=== PATIENT | female | born 1935 | race Caucasian/White ===

== ENCOUNTER 2016-02-26 06:42 | Day surgery (SDC) | payer BC ==
[2016-02-23 14:46] VITALS: BMI 32.9
--- NOTE | 2016-02-25 16:40 | HP ---
- Patient Scheduled date of Surgery: 02/26/16 Scheduled Surgical Procedure: Phacoemulsification and cataract extraction with PCIOL Affected Eye: Left Chief Complaint (Indication for surgery): Decreased vision affecting ADLs - Ocular History Other Eye History: Other (frd, HSV stromal keratitis OS, allergic conjunctivitis ) Eye Medications: vigamox, pataday - Medical History Current Medications: Ambulatory Orders Rosuvastatin Calcium [Crestor] 20 mg PO HS 01/13/13 Cholecalciferol (Vitamin D3) [Vitamin D] 1 tab PO DAILY 04/25/13 FA/Mv,Ca,Iron,Min/Lycopene/Lut [Centrum Tablet] 1 tab PO DAILY 04/25/13 [place]-3 Fatty Acids [Fish Oil] 300 mg PO DAILY 02/23/16 Allergies/Adverse Reactions: Allergies Allergy/AdvReac Type Severity Reaction Status Date / Time No Known Allergies Allergy Verified 01/13/13 16:33 Ocular Examination - Best Corrected Visual Acuity Distance: Right eye: 20/25 Distance: Left eye: 20/40 - External/Slit Lamp Examination Abnormalities: shallow AC ou - Intraocular Pressure Intraocular Pressure - Right eye: 16 Intraocular Pressure-Left eye: 16 - Lens Lens: 3+ ns 1+ cortical - Vitreous/Retina Vitreous/Retina: C:D 0.15 m/v/p wnl - Special Examination M - Right eye: +3.75-0.50 x 90 M - Left eye: +2.50-0.75 x 080 K - Right eye: 43/43.25 x 160 K - Left eye: 43.50/43.50 AL - Right eye: 22.31 AL - Left eye: 22.46 IOL bag: +24.5 d hoya 251 IOL sulcus: +24.0d hoya 231 IOL AC: +20.0d MTA 4uo - Impression Impression: Cataract Left Eye - Plan Plan: Phacoemulsification and cataract extraction - IOL Left eye Post-hospital care will be provided in office on: 02/27/16
[~2016-02-26 06:42] MED LIST: ACETAMINOPHEN 325 MG TABLET (FP) PO PRN
[2016-02-26] MEDS ORDERED: CIPROFLOXACIN HCL 0.3% OPHTH 2.5ML BOTTLE OP SCH (06:45)
[2016-02-26] MEDS ORDERED: PHENYLEPHRINE 2.5% OPHTH SOLN 15 ML BOTTLE OP SCH (06:45)
[2016-02-26] MEDS ORDERED: DICLOFENAC SODIUM 0.1% OPHTHALMIC 2.5ML BOTTLE OP SCH (06:45)
[2016-02-26] MEDS ORDERED: TROPICAMIDE 1% OPHTH SOLN 15 ML BOTTLE OP SCH (06:45)
[2016-02-26] MEDS ORDERED: EPINEPHrine/PF 1 MG/1 ML (1:1,000) AMPULE ONE (07:20)
[2016-02-26] MEDS ORDERED: TOBRAMYCIN/DEXAMETHASONE OPHTH. OINTMENT 1 TUBE ONE (07:20)
[2016-02-26] MEDS ORDERED: LIDOCAINE HCL/PF 1% SDV 5ML VIAL ONE (07:20)
--- NOTE | 2016-02-26 07:20 | HP ---
History & Physical Update - History History: No Change - Physical Physical: No Change - Assessment Assessment: No Change - Plan Plan: No Change
[2016-02-26] MEDS ORDERED: BSS (NA/CA/MG/K) BALANCED SALT SOLUTION OPHTH SOLN 15 ML BOTTLE ONE (07:21)
[2016-02-26] MEDS ORDERED: LIDOCAINE HCL 2% JELLY (5 ML/TUBE) ONE (07:21)
[2016-02-26] MEDS ORDERED: PHENYLEPHRINE 2.5% OPHTH SOLN 15 ML BOTTLE ONE (07:26)
[2016-02-26] MEDS ORDERED: DICLOFENAC SODIUM 0.1% OPHTHALMIC 2.5ML BOTTLE ONE (07:26)
[2016-02-26] MEDS ORDERED: MOXIFLOXACIN HCL 0.5% OPHTHALMIC 3 ML BOTTLE ONE (07:26)
[2016-02-26] MEDS ORDERED: TROPICAMIDE 1% OPHTH SOLN 15 ML BOTTLE ONE (07:26)
[2016-02-26 07:34] VITALS: TEMP 97.7
[2016-02-26] MEDS ORDERED: LIDOCAINE HCL 2% JELLY (5 ML/TUBE) TP ONE (08:48)
[2016-02-26] MEDS ORDERED: MIDAZOLAM HCL 2 MG/2 ML SINGLE DOSE VIAL ONE (08:53)
[2016-02-26] MEDS ORDERED: POVIDONE-IODINE 5% OPHTHALMIC PREP 30 ML SOLUTION OS ONE (08:57)
[2016-02-26] MEDS ORDERED: LIDOCAINE HCL 1% PRESERVATIVE FREE - 30ML VIAL IO ONE (09:05)
[2016-02-26] MEDS ORDERED: EPINEPHrine/PF 1 MG/1 ML (1:1,000) AMPULE SQ ONE (09:05)
[2016-02-26] MEDS ORDERED: BSS (NA/CA/MG/K) BALANCED SALT SOLUTION OPHTH SOLN 15 ML BOTTLE OS ONE (09:05)
[2016-02-26] MEDS ORDERED: CHONDROITIN SU A/HYALUR SOD 1 KIT IO ONE (09:05)
[2016-02-26] MEDS ORDERED: TOBRAMYCIN/DEXAMETHASONE OPHTH. OINTMENT 1 TUBE TP ONE (09:26)
--- NOTE | 2016-02-26 09:37 | OP ---
Ophthalmology Operative Note Pre-Operative Diagnosis: Cataract Affected Eye: Left Operation: Phacoemulsification and cataract extraction with PCIOL Findings: cataract Post-Operative Diagnosis: Same as Pre-op Solar Applications Development Engineer: None Anesthesiologist: Yadira Guaman MD Anesthesia: Topical Specimens Removed: none Drains & Tubes with Location: <1 cc Operative Report Dictated: Yes
[2016-02-26 11:13] VITALS: BP 144/76; PULSE 79
--- NOTE | 2016-02-26 11:22 | OP ---
DATE OF OPERATION: February 26, 2016 PREOPERATIVE DIAGNOSIS: Cataract, left eye. POSTOPERATIVE DIAGNOSIS: Cataract, left eye. PROCEDURE: Phacoemulsification and cataract extraction with insertion of posterior chamber intraocular lens, left eye. DESCRIPTION OF PROCEDURE: The patient received viscous lidocaine gel in the holding area and then was brought to the operating room and gently sedated. The patient was then prepped and draped in the usual sterile fashion so as to expose only the left eye. Ophthalmic Betadine was instilled into the inferior fornix and the lashes were taped out of the surgical field. An eyelid speculum was placed into the left eye. A paracentesis was made in inferior clear cornea at the limbus. Non-preserved 0.5 mL of 1% lidocaine was injected into the anterior chamber. Viscoelastic material was instilled into the anterior chamber via the paracentesis. A 2.4 mm keratome was then used to create the main incision in temporal clear cornea at the limbus. A continuous curvilinear capsulorhexis was performed using a cystotome and Utrata forceps. Hydrodissection of the lens cortex was performed using BSS on a cannula until the nucleus was noted to be freely rotating. The phacoemulsification tip was then inserted via the main wound and used to sculpt 2 perpendicular grooves into the lens nucleus. The nucleus was cracked into 4 quadrants using the 2 instruments. Each quadrant was lifted out of the capsule into the iris plane and individually phacoemulsified. The remaining cortical material was then aspirated using the irrigation and aspiration port. The capsular bag was inflated using Provisc and a preloaded Hoya lens model 251, power +24.5 diopter was injected into the anterior chamber and centered using a Sinskey hook. The residual viscoelastic was removed from the anterior chamber using irrigation and aspiration. The wound edges were hydrated using BSS. The wound was tested for leakage, it was found to be water tight. Therefore TobraDex ointment was placed in the eye and the speculum was removed from the eye. Sterile dressing and shield were placed over the eye and the patient was transferred to the recovery room in stable condition, told to follow up in 1 day. LJ CASTILLO M.D. 1 [id number]
== END 2016-02-26 10:40 | disposition home or self-care (01) ==
LOC: JASU-SURG 06:42
PROVIDERS: ATTEND Ophthalmology
PROC: 08RK3JZ Replacement of Left Lens with Synthetic Substitute, Percutaneous Approach (ICD-10-PCS; principal; 2016-02-26 08:30)
DX: H26.9 Unspecified cataract (principal)

== ENCOUNTER 2016-09-30 06:22 | Day surgery (SDC) | payer BC ==
[2016-09-29 14:02] VITALS: BMI 31.0
--- NOTE | 2016-09-29 17:34 | HP ---
History & Physical Update - History History: No Change - Physical Physical: No Change - Assessment Assessment: No Change - Plan Plan: No Change
--- NOTE | 2016-09-29 17:34 | HP ---
- Patient Scheduled date of Surgery: 09/30/16 Scheduled Surgical Procedure: Phacoemulsification and cataract extraction with PCIOL Affected Eye: Right Chief Complaint (Indication for surgery): Decreased vision affecting ADLs - Ocular History Other Eye History: Other (macular drusen, hsv stromal keratitis OS, allergic conjunctivitis) Eye Medications: vigamox tid Od, pataday qd ou Previous Eye Surgery: s/p ce/pciol OS topical +24.5 d hoya 251 - Medical History Illnesses: Hypercholesterolemia Current Medications: Ambulatory Orders Rosuvastatin Calcium [Crestor] 20 mg PO HS 01/13/13 Cholecalciferol (Vitamin D3) [Vitamin D] 1 tab PO DAILY 04/25/13 FA/Mv,Ca,Iron,Min/Lycopene/Lut [Centrum Tablet] 1 tab PO DAILY 04/25/13 [place]-3 Fatty Acids [Fish Oil] 300 mg PO DAILY 02/23/16 Allergies/Adverse Reactions: Allergies Allergy/AdvReac Type Severity Reaction Status Date / Time No Known Allergies Allergy Verified 01/13/13 16:33 Ocular Examination - Best Corrected Visual Acuity Distance: Right eye: 20/50 glare Distance: Left eye: 20/25 - External/Slit Lamp Examination Abnormalities: decreased tbut - Intraocular Pressure Intraocular Pressure - Right eye: 14 Intraocular Pressure-Left eye: 13 - Lens Lens: 3+ ns 1+ cortical - Vitreous/Retina Vitreous/Retina: c:d 0.15 gliosis, m/v/p wnl - Special Examination M - Right eye: +3.75 -0.50 x 90 M - Left eye: plano K - Right eye: 43/43.50 x 090 K - Left eye: 43/43/25 x 165 AL - Right eye: 22.31 AL - Left eye: 22.4 IOL bag: +25.0 d hoya 251 IOL sulcus: +24.0 d hoya 231 IOL AC: +20.5 d MTA 4uo - Impression Impression: Cataract Right Eye - Plan Plan: Phacoemulsification and cataract extraction - IOL Right eye Post-hospital care will be provided in office on: 10/01/16
[~2016-09-30 06:22] MED LIST changes: +LIDOCAINE HCL 2% JELLY (5 ML/TUBE) TP ONE; +TOBRAMYCIN/DEXAMETHASONE OPHTH. OINTMENT 1 TUBE TP ONE
[2016-09-30] MEDS ORDERED: CIPROFLOXACIN HCL 0.3% OPHTH 2.5ML BOTTLE OP SCH (07:00)
[2016-09-30] MEDS ORDERED: PHENYLEPHRINE 2.5% OPHTH SOLN 15 ML BOTTLE OP SCH (07:00)
[2016-09-30] MEDS ORDERED: DICLOFENAC SODIUM 0.1% OPHTHALMIC 2.5ML BOTTLE OP SCH (07:00)
[2016-09-30] MEDS ORDERED: TROPICAMIDE 1% OPHTH SOLN 15 ML BOTTLE OP SCH (07:00)
[2016-09-30] MEDS ORDERED: TOBRAMYCIN/DEXAMETHASONE OPHTH. OINTMENT 1 TUBE ONE (07:25)
[2016-09-30] MEDS ORDERED: EPINEPHrine/PF 1 MG/1 ML (1:1,000) AMPULE ONE (07:25)
[2016-09-30] MEDS ORDERED: LIDOCAINE HCL 2% JELLY (5 ML/TUBE) ONE (07:26)
[2016-09-30] MEDS ORDERED: LIDOCAINE HCL/PF 1% SDV 5ML VIAL ONE (07:26)
[2016-09-30] MEDS ORDERED: PHENYLEPHRINE 2.5% OPHTH SOLN 15 ML BOTTLE ONE (07:41)
[2016-09-30] MEDS ORDERED: CIPROFLOXACIN 0.3% EYE DROPS 5 ML BOTTLE ONE (07:41)
[2016-09-30] MEDS ORDERED: DICLOFENAC SODIUM 0.1% OPHTHALMIC 2.5ML BOTTLE ONE (07:41)
[2016-09-30] MEDS ORDERED: TROPICAMIDE 1% OPHTH SOLN 15 ML BOTTLE ONE (07:41)
[2016-09-30] MEDS ORDERED: MIDAZOLAM HCL 2 MG/2 ML SINGLE DOSE VIAL ONE (08:47)
[2016-09-30] MEDS ORDERED: CHONDROITIN SU A/HYALUR SOD 1 KIT IO ONE (08:54)
[2016-09-30] MEDS ORDERED: LIDOCAINE HCL 1% PRESERVATIVE FREE - 30ML VIAL IO ONE (08:54)
[2016-09-30] MEDS ORDERED: TOBRAMYCIN/DEXAMETHASONE OPHTH. OINTMENT 1 TUBE TP ONE (09:13)
--- NOTE | 2016-09-30 09:25 | OP ---
Ophthalmology Operative Note Pre-Operative Diagnosis: Cataract Affected Eye: Right Operation: Phacoemulsification and cataract extraction with PCIOL Findings: cataract right eye Post-Operative Diagnosis: Same as Pre-op Commercial Credit Portfolio Manager: None Anesthesiologist: Traci Kaiser Anesthesia: Topical Specimens Removed: none Estimated blood loss: none Drains & Tubes with Location: none Operative Report Dictated: Yes
[2016-09-30 10:18] VITALS: BP 134/61; PULSE 76; TEMP 97.4
--- NOTE | 2016-09-30 13:23 | OP ---
DATE OF OPERATION: 09/30/2016 PREOPERATIVE DIAGNOSIS: Nuclear sclerotic cataract, right eye. POSTOPERATIVE DIAGNOSIS: Nuclear sclerotic cataract, right eye. PROCEDURE: Phacoemulsification and cataract extraction with insertion of posterior chamber intraocular lens, right eye. SURGEON: Lj Palomares MD LIP CUTTER AND SCORER: None. ANESTHESIA: Topical. ANESTHESIOLOGIST: Traci Kaiser DO OPERATIVE PROCEDURE: The patient received viscous lidocaine gel in the holding area and then was brought to the operating room and gently sedated and prepped and draped in the usual sterile fashion so as to expose only the right eye. Ophthalmic Betadine was instilled into the inferior fornix. The lashes were taped out of the surgical field. An eyelid speculum was placed into the right eye. A paracentesis was made in superior clear cornea at the limbus. Next, 0.5 mL of nonpreserved lidocaine 1% was injected into the anterior chamber. Viscoelastic material was instilled into the anterior chamber via the paracentesis. A 2.4-mm keratome was then used to create the main incision in temporal clear cornea at the limbus. A continuous curvilinear capsulorrhexis was performed using a cystotome and Utrata forceps. Hydrodissection of the lens cortex was performed using BSS on a cannula until the nucleus was noted to be freely rotating. The phacoemulsification tip was then inserted via the main wound and used to sculpt 2 perpendicular grooves into the lens nucleus. The nucleus was crackled into 4 quadrants using 2 instruments. Each quadrant was lifted out of the capsule into the iris plane and individually phacoemulsified. The remaining cortical material was then aspirated using the irrigation and aspiration port. The capsular bag was inflated using Provisc, and a preloaded Hoya lens model 251, power +25.0 diopters was injected into the capsular bag and centered using a Sinskey hook. The residual viscoelastic material was removed from the anterior chamber using irrigation and aspiration. The wound edges were hydrated using BSS. The wound was tested for leakage and was found to be watertight. Therefore, TobraDex ointment was placed in the eye and the speculum was removed from the eye and the eyelid was closed. A sterile dressing and shield were placed over the eye, and the patient was transferred to the recovery room in stable condition, told to follow up in 1 day. LJ PALOMARES M.D. [id number]
== END 2016-09-30 10:21 | disposition home or self-care (01) ==
LOC: JASU-SURG 06:22
PROVIDERS: ATTEND Ophthalmology
PROC: 08RJ3JZ Replacement of Right Lens with Synthetic Substitute, Percutaneous Approach (ICD-10-PCS; principal; 2016-09-30 08:30)
DX: H25.11 Age-related nuclear cataract, right eye (principal)

== ENCOUNTER 2018-02-18 19:10 | Emergency (ER) | payer BC, OTHER ==
[2018-02-18 19:18] VITALS: PULSE 80; TEMP 97.9; BMI 28.2
--- NOTE | 2018-02-18 19:33 | PDOC ---
History of Present Illness - General History Source: Patient Exam Limitations: No Limitations - History of Present Illness Initial Comments: 02/18/18 20:55 The patient is an 83 year old female with a past medical history of vertigo and HLD here today for evaluation of dizziness. The patient reports that her dizziness began last night around 11:30 pm and that she fell due to her dizziness. She notes however that she was able to ease herself to the ground and did not suffer any major injury. The patient measured her blood pressure after falling and reports that it was 195/105 and that it fluctuated today but remained high. She reports that her baseline blood pressure is 140/80. She notes that her dizziness is similar to her past episodes of vertigo describing it as the room spinning and is worse with lying down. She also notes associated headache and persistent dry cough. The patient notes not being able to remember her phone number which is unusual for her. The patient reports that she had one episode of chest pain two weeks ago. Patient denies headache, lightheadedness. Denies fever, chills. Denies chest pain, shortness of breath. Denies nausea, vomiting, diarrhea, abdominal pain. Denies lower extremity edema. Denies urinary symptoms. Denies neurologic symptoms. Denies travel or suspicious food intake. Allergies: NKA Social history: Denies tobacco and alcohol use Surgical history: Thoracotomy (1968) PCP: Bernardo Oneill <Darrius Lopez - Last Filed: 02/18/18 20:55> <Coreen Mariano - Last Filed: 02/19/18 04:38> - General Chief Complaint: Blood Pressure Problem Stated Complaint: HTN/DIZZINESS Time Seen by Provider: 02/18/18 19:11 Past History <Darrius Lopez - Last Filed: 02/18/18 20:55> - Past Medical History Anemia: No Asthma: No Cancer: No Cardiac Disorders: No CVA: No COPD: No CHF: No Dementia: No Diabetes: No GI Disorders: Yes (HX REFLUX) Disorders: No HTN: No Hypercholesterolemia: Yes Liver Disease: No Seizures: No Thyroid Disease: No - Surgical History Abdominal Surgery: No Appendectomy: No Cardiac Surgery: No Cholecystectomy: No Lung Surgery: Yes (BENIGN - DRAINED 1968) Neurologic Surgery: No Orthopedic Surgery: Yes (195- FX HIP RIGHT) - Suicide/Smoking/Psychosocial Hx Smoking History: Never smoked Number of Cigarettes Smoked Daily: 0 Hx Alcohol Use: No Drug/Substance Use Hx: No Substance Use Type: None Hx Substance Use Treatment: No <Coreen Mariano - Last Filed: 02/19/18 04:38> - Past Medical History Allergies/Adverse Reactions: Allergies Allergy/AdvReac Type Severity Reaction Status Date / Time No Known Allergies Allergy Verified 09/30/16 06:43 Home Medications: Ambulatory Orders Rosuvastatin Calcium [Crestor] 20 mg PO HS 01/13/13 Cholecalciferol (Vitamin D3) [Vitamin D] 1 tab PO DAILY 04/25/13 FA/Mv,Ca,Iron,Min/Lycopene/Lut [Centrum Tablet] 1 tab PO DAILY 04/25/13 [place]-3 Fatty Acids [Fish Oil] 300 mg PO DAILY 02/23/16 Meclizine HCl [Antivert -] 25 mg PO TID PRN #12 tablet 02/18/18 Review of Systems - Review of Systems Able to Perform ROS?: Yes Comments:: 02/18/18 20:55 All systems are reviewed and negative except as noted in the HPI <Darrius Lopez - Last Filed: 02/18/18 20:55> *Physical Exam - Vital Signs Last Vital Signs Temp Pulse Resp BP Pulse Ox 97.9 F 80 16 195/101 H 97 02/18/18 19:11 02/18/18 19:11 02/18/18 19:11 02/18/18 19:11 02/18/18 19:11 - Physical Exam Comments: 02/18/18 20:56 GENERAL: Awake, alert, and fully oriented, in no acute distress HEAD: No signs of trauma EYES: PERRLA, EOMI, sclera anicteric, conjunctiva clear. Pupils 1 mm equal and reactive ENT: Auricles normal inspection, hearing grossly normal, nares patent, oropharynx clear without exudates. Moist mucosa NECK: +Mild tenderness at midline c2-c3 no meningismus in neck. Normal ROM, supple, no lymphadenopathy, JVD, or masses LUNGS: Breath sounds equal, clear to auscultation bilaterally. No wheezes, and no crackles HEART: Regular rate and rhythm, normal S1 and S2, no murmurs, rubs or gallops ABDOMEN: Soft, nontender, normoactive bowel sounds. No guarding, no rebound. No masses EXTREMITIES: +bilateral 1+ pitting edema of ankles without tenderness, masses, or chords. Normal range of motion. No clubbing or cyanosis. No cords, erythema , or tenderness NEUROLOGICAL: Cranial nerves II through XII grossly intact. Normal speech, all 4 extremities moving equally with no muscle weakness. SKIN: +Well healed right posterior thoracotomy incision. Warm, Dry, normal turgor, no rashes or lesions noted. <Darrius Lopez - Last Filed: 02/18/18 20:55> - Vital Signs Last Vital Signs Temp Pulse Resp BP Pulse Ox 97.9 F 80 16 195/101 H 97 02/18/18 19:11 02/18/18 19:11 02/18/18 19:11 02/18/18 19:11 02/18/18 19:11 <Coreen Mariano - Last Filed: 02/19/18 04:38> Moderate Sedation - Procedure Monitoring Vital Signs: Procedure Monitoring Vital Signs Temperature 97.9 F 02/18/18 19:11 Pulse Rate 80 02/18/18 19:11 Respiratory Rate 16 02/18/18 19:11 Blood Pressure 195/101 H 02/18/18 19:11 O2 Sat by Pulse Oximetry (%) 97 02/18/18 19:11 <Darrius Lopez - Last Filed: 02/18/18 20:55> - Procedure Monitoring Vital Signs: Procedure Monitoring Vital Signs Temperature 97.9 F 02/18/18 19:11 Pulse Rate 80 02/18/18 19:11 Respiratory Rate 16 02/18/18 19:11 Blood Pressure 195/101 H 02/18/18 19:11 O2 Sat by Pulse Oximetry (%) 97 02/18/18 19:11 <Coreen Mariano - Last Filed: 02/19/18 04:38> ED Treatment Course - LABORATORY CBC & Chemistry Diagram: 02/18/18 20:30 02/18/18 20:30 - ADDITIONAL ORDERS Additional order review: Laboratory Results 02/18/18 20:24 Urine Color Yellow Urine Appearance Clear Urine pH 6.5 Ur Specific [place] 1.010 Urine Protein Negative Urine Glucose (UA) Negative Urine Ketones Negative Urine Blood Trace-intact H Urine Nitrite Negative Urine Bilirubin Negative Urine Urobilinogen 0.2 Ur Leukocyte Esterase Negative <Darrius Lopez - Last Filed: 02/18/18 20:55> - LABORATORY CBC & Chemistry Diagram: 02/18/18 20:30 02/18/18 20:30 <Coreen Mariano - Last Filed: 02/19/18 04:38> Medical Decision Making - Medical Decision Making Documentation has been prepared under my direction and personally reviewed by me in its entirety. I attest that this documented accurately reflects all work, treatment, procedures and medical decision making performed by me. As noted above, this 83-year-old woman with vertigo/HLD presents with intermittent vertigo for 24 hours (worsened with certain positions of her head and changes in position of her body) and elevated blood pressure readings on her home BP monitor <Coreen Mariano - Last Filed: 02/19/18 04:38> *DC/Admit/Observation/Transfer - Attestations Scribe Attestion: 02/18/18 20:56 Documentation prepared by MICH Harris, acting as medical resident for Coreen Mariano MD. <Darrius Lopez - Last Filed: 02/18/18 20:55> <Coreen Mariano - Last Filed: 02/19/18 04:38> Diagnosis at time of Disposition: Blood pressure elevated without history of HTN Labyrinthitis Qualifiers: Laterality: unspecified laterality Qualified Code(s): H83.09 - Labyrinthitis, unspecified ear - Discharge Dispostion Disposition: HOME Condition at time of disposition: Stable - Prescriptions Prescriptions: Meclizine HCl [Antivert -] 25 mg PO TID PRN #12 tablet PRN Reason: Vertigo - Referrals Referrals: Bernardo Oneill MD [Primary Care Provider] - 2 Days - Patient Instructions Printed Discharge Instructions: DI for Labyrinthitis Additional Instructions: Rest; drink plenty of fluids Meclizine 25 mg up to 3 times a day as needed for vertigo Avoid salt in your diet; avoid processed foods Return to ER immediately if you have persistent severe dizziness/severe headache /persistent high blood pressure Call your doctor on February 20 to arrange follow-up within 48 hours - Post Discharge Activity
[2018-02-18 20:35] LABS: PH,URINE 6.5 (4.5-8); URINE APPEARANCE Clear; URINE BILIRUBIN Negative (NEGATIVE); URINE COLOR Yellow; URINE GLUCOSE (UA) Negative (NEGATIVE); URINE KETONE Negative (NEGATIVE); URINE LEUK ESTERASE Negative (NEGATIVE); URINE NITRITE Negative (NEGATIVE); URINE PROTEIN Negative (NEGATIVE); URINE UROBILINOGEN 0.2 (0.2-1.0)
[2018-02-18 20:56] LABS: BASO % 0.3 % (0-2.0); EOS % 1.7 % (0-4.5); HEMATOCRIT 43.2 % (32.4-45.2); HEMOGLOBIN 14.4 GM/dl (10.7-15.3); LYMPH % 32.6 % (8-40); MCH 30.2 pg (25.7-33.7); MCHC 33.4 g/dl (32.0-36.0); MEAN CELL VOLUME 90.6 fl (80-96); MONO % 7.5 % (3.8-10.2); NEUT % 57.9 % (42.8-82.8); PLATELET COUNT 319 K/MM3 (134-434); RBC 4.77 M/mm3 (3.60-5.2); RDW 11.7 % (11.6-15.6); WHITE BLOOD COUNT 7.9 K/mm3 (4.0-10.8)
[2018-02-18 20:57] LABS: EPI CELLS FEW /HPF; URINE BACTERIA NONE SEEN /hpf (NEGATIVE); URINE WBC 0-2 (0-5)
[2018-02-18 21:06] LABS: ALBUMIN 4.1 g/dl (3.5-5.0); ALK PHOS 76 U/L (32-92); ANION GAP 7 MMOL/L (8-16); BILIRUBIN,TOTAL 0.5 mg/dl (0.2-1.0); BLOOD UREA NITROGEN 12 mg/dl (7-18); CALCIUM 9.3 mg/dl (8.4-10.2); CHLORIDE 104 mmol/L (98-107); CO2 27 mmol/L (22-28); CREATININE 0.7 mg/dl (0.6-1.3); GLUCOSE,RANDOM 129 mg/dl (74-106); POTASSIUM 3.8 mmol/L (3.5-5.1); SGOT/AST 20 U/L (10-42); SGPT/ALT 20 U/L (10-40); SODIUM 138 mmol/L (136-145)
[2018-02-18] MEDS ORDERED: MECLIZINE HCL 25 MG TABLET (FP) PO ONE (21:29)
[2018-02-18] MEDS ORDERED: MECLIZINE HCL 25 MG TABLET (FP) ONE (21:34)
[2018-02-18 22:10] VITALS: BP 144/84
--- NOTE | 2018-02-19 17:05 | EKG ---
Test Reason : Blood Pressure : / mmHG Vent. Rate : 077 BPM Atrial Rate : 077 BPM P-R Int : 168 ms QRS Dur : 080 ms QT Int : 372 ms P-R-T Axes : 000 -14 015 degrees QTc Int : 420 ms SINUS RHYTHM WITH PREMATURE ATRIAL COMPLEXES MINIMAL VOLTAGE CRITERIA FOR LVH, MAY BE NORMAL VARIANT BORDERLINE ECG WHEN COMPARED WITH ECG OF 07-APR-2000 17:49, PREMATURE ATRIAL COMPLEXES ARE NOW PRESENT Confirmed by MD BRENDAN, PASTOR ([id number]) on 02/19/2018 5:05:21 PM Referred By: MAIN RYAN Confirmed By:PASTOR CARDONA MD
== END 2018-02-18 22:32 | disposition home or self-care (01) ==
LOC: FER 19:10
DX: R03.0 Elevated blood-pressure reading, without diagnosis of hypertension (principal); H83.09 Labyrinthitis, unspecified ear
CPT/HCPCS: 36415; 70450-TC; 71045-TC-FY; 80053; 81003; 81015; 82550; 84484; 85025; 93005; 99282-25

== ENCOUNTER → 2021-01-01 | Day surgery (SDC) | payer OTHER | END | disposition home or self-care (01) | LOC: FMAMMOTONE 10:03 | PROVIDERS: ATTEND Obstetrics & Gynecology | PROC: 0HBU3ZX Excision of Left Breast, Percutaneous Approach, Diagnostic (ICD-10-PCS; principal; 2021-01-01) | DX: R92.0 Mammographic microcalcification found on diagnostic imaging of breast (principal) | CPT/HCPCS: 19081; 76098-TC-FY; 87899; 88305-TC; A4648 ==

== ENCOUNTER → 2021-11-05 | Day surgery (SDC) | payer OTHER | END | disposition home or self-care (01) | LOC: JRADIR 10:17 | PROVIDERS: ATTEND Obstetrics & Gynecology | PROC: 0G9K3ZX Drainage of Thyroid Gland, Percutaneous Approach, Diagnostic (ICD-10-PCS; principal; 2021-11-05) | DX: E04.1 Nontoxic single thyroid nodule (principal) | CPT/HCPCS: 10005; 76942; 88173; 88305-TC ==